=== PATIENT | male | born 1955 | race African-American/Black ===

== ENCOUNTER 2017-02-02 10:36 | Outpatient (CLI) | payer MEDICAID ==
[~2017-02-02] VITALS: Ht 172.7 cm; Wt 75.3 kg
[2017-02-02 11:19] VITALS: BP 142/97
[2017-02-02] MEDS ORDERED: NO MEDICATION (11:20)
--- NOTE | 2017-02-02 11:31 | GI Initial Consult Note ---
History of Present Illness General Date patient seen: Feb 02, 2017 Time patient seen: 11:30 Referring physician: HIMA Reason for Consultation: Pancreatic Mass Present Illness HPI 61 year old male referred by Dr. Arce for evaluation of pancreatic mass. Hx of colonoscopy July 2016. He presents today with c/o of abdominal pain with associated vomiting, GERD, and weight loss since 2015. No signs of abuse or neglect. Patient is not fall risk. Home Meds Reported Medications [No Medication] No Conflict Check 02/02/17 Med list reviewed/reconciled: Yes Allergies: Coded Allergies: No Known Allergies (Unverified , 02/02/17) Patient History History Provided By: Patient, Medical Record PMH Narrative GERD Past Surgical History: other - R inguinal hernia Family History Narrative Mother >> DM Social History Narrative ETOH, 3 beers daily tobacco use, 5-6 daily Review of Systems All Other Systems: negative except mentioned in HPI Physical Exam Vital Signs Date Time Temp Pulse Resp B/P (MAP) Pulse Ox O2 Delivery O2 Flow Rate FiO2 02/02/17 11:19 98.4 82 16 142/97 97 Sp02 EP Interpretation: reviewed, normal General Appearance: well appearing, no apparent distress, alert Head: normocephalic EENT: PERRL/EOMI, normal ENT inspection Neck: supple Respiratory: normal breath sounds, no respiratory distress Cardiovascular: normal rate Gastrointestinal: normal inspection, non tender, soft, normal bowel sounds, non -distended Rectal: deferred Genitourinary: deferred Musculoskeletal: normal inspection, back normal Neurologic: normal inspection, alert, oriented x3, responsive Psychiatric: normal inspection, judgement/insight normal, memory normal Skin: normal inspection, normal color, no rash, warm/dry, palpation normal, well hydrated Lymphatic: normal inspection, no adenopathy GI: Plan Problems: (1) Pancreatic mass (2) Encounter for diagnostic endoscopy (3) GERD (gastroesophageal reflux disease) (4) Weight loss (5) Abdominal pain (6) Vomiting Plan EGD/EUS will be scheduled pending prior authorization. - NPO @ ND day prior procedure explained to patient. - labs to be ordered day of procedure; CA19-[address] Ruvalcaba. Thank you for this patient referral. Nani Stark N.P. Feb 02, 2017 11:31
== END 2017-02-02 11:11 | disposition home or self-care (01) ==
LOC: PAN 10:36
DX: R19.00 Intra-abdominal and pelvic swelling, mass and lump, unspecified site (principal); R11.10 Vomiting, unspecified; K21.9 Gastro-esophageal reflux disease without esophagitis; R63.4 Abnormal weight loss; Z83.3 Family history of diabetes mellitus
CPT/HCPCS: 99201

== ENCOUNTER 2017-03-05 08:06 | Day surgery (SDC) | payer MEDICAID, OTHER ==
[2017-03-05] VITALS (7 sets, daily range): BP systolic 116–157; BP diastolic 70–90
[~2017-03-05] VITALS: Ht 172.7 cm; Wt 77.1 kg
[~2017-03-05 08:06] MED LIST: NO MEDICATION
[2017-03-05] MEDS ORDERED: Propofol 200mg/20ml IV ONE (08:07)
[2017-03-05] MEDS ORDERED: Midazolam 2mg/2ml Inj ONE (08:07)
[2017-03-05] MEDS ORDERED: LR 1000ml ONE (08:07)
[2017-03-05] MEDS ORDERED: fentaNYL 100 mcg/2 mL IV ONE (08:07)
[2017-03-05 08:47] LABS: BASOPHILS % (AUTO) 1.6 % (0.0-2.0); EOSINOPHILS % (AUTO) 1.5 % (0.0-3.0); HEMOGLOBIN 13.5 G/DL (14.2-18.0); LYMPHOCYTES % (AUTO) 22.7 % (20.0-45.0); MEAN CORPUSCULAR VOLUME 95 FL (80-99); MONOCYTES % (AUTO) 9.3 % (1.0-10.0); NEUTROPHILS % (AUTO) 64.9 % (45.0-75.0); PLATELET COUNT 135 K/UL (150-450); RED BLOOD COUNT 4.41 M/UL (4.70-6.10); WHITE BLOOD COUNT 5.3 K/UL (4.8-10.8)
[2017-03-05 08:56] LABS: INR 1.1 (0.9-1.1)
[2017-03-05 08:58] LABS: ANION GAP 10 mmol/L (5-15); BLOOD UREA NITROGEN 7 mg/dL (7-18); CALCIUM 7.6 MG/DL (8.5-10.1); CARBON DIOXIDE 24 MMOL/L (21-32); CHLORIDE 106 MMOL/L (98-107); CREATININE 0.8 MG/DL (0.55-1.30); POTASSIUM 3.3 MMOL/L (3.5-5.1); SODIUM 140 MMOL/L (136-145)
[2017-03-05 09:01] LABS: ALANINE AMINOTRANSFERASE 55 U/L (12-78); ALBUMIN 3.5 G/DL (3.4-5.0); ALBUMIN/GLOBULIN RATIO 0.8 (1.0-2.7); ALKALINE PHOSPHATASE 111 U/L (46-116); AMYLASE 117 U/L (25-115); ASPARTATE AMINO TRANSFERASE 67 U/L (15-37); BILIRUBIN,TOTAL 0.3 MG/DL (0.2-1.0)
--- NOTE | 2017-03-05 09:36 | Pre-Procedure Note/Attestation ---
Pre-Procedure Note/Attestation Complete Prior to Procedure Planned Procedure: not applicable Procedure Narrative: EUS Indications for Procedure Pre-Operative Diagnosis: pancreatic mass Attestation I attest that I discussed the nature of the procedure; its benefits; risks and complications; and alternatives (and the risks and benefits of such alternatives ), prior to the procedure, with the patient (or the patient's legal sales representative printing). I attest that, if there was a reasonable possibility of needing a blood transfusion, the patient (or the patient's legal sales representative printing) was given the [facility] standardized written summary, pursuant to the Oliver Caridad Blood Safety Act ([place] Health and Safety Code # 1645, as amended). I attest that I re-evaluated the patient just prior to the surgery and that there has been no change in the patient's H&P, except as documented below: WILFRED MUJICA Mar 05, 2017 09:36
--- NOTE | 2017-03-05 09:37 | Short Stay Surgery H&P ---
History of Present Illness History of Present Illness Chief Complaint see recent consult note HPI Bird Whitfield is a 61 year old male who was admitted on for Pancreatic Mass Patient History Allergies: Coded Allergies: No Known Allergies (Unverified , 02/02/17) PAST MEDICAL HISTORY: Past Surgeries: Social History: Medication History Miscellaneous Medications [No Medication], (Reported) Physical Exam Vital Signs Last Vital Signs Date Time Temp Pulse Resp B/P (MAP) Pulse Ox O2 Delivery O2 Flow Rate FiO2 03/05/17 08:41 97.8 63 18 152/90 97 Room Air Labs Laboratory Tests Test 03/05/17 08:35 White Blood Count 5.3 K/UL (4.8-10.8) Red Blood Count 4.41 M/UL (4.70-6.10) L Hemoglobin 13.5 G/DL (14.2-18.0) L Hematocrit 42.0 % (42.0-52.0) Mean Corpuscular Volume 95 FL (80-99) Mean Corpuscular Hemoglobin 30.7 PG (27.0-31.0) Mean Corpuscular Hemoglobin Concent 32.2 G/DL (32.0-36.0) Red Cell Distribution Width 13.0 % (11.6-14.8) Platelet Count 135 K/UL (150-450) L Mean Platelet Volume 7.4 FL (6.5-10.1) Neutrophils (%) (Auto) 64.9 % (45.0-75.0) Lymphocytes (%) (Auto) 22.7 % (20.0-45.0) Monocytes (%) (Auto) 9.3 % (1.0-10.0) Eosinophils (%) (Auto) 1.5 % (0.0-3.0) Basophils (%) (Auto) 1.6 % (0.0-2.0) Prothrombin Time 11.2 SEC (9.30-11.50) Prothromb Time International Ratio 1.1 (0.9-1.1) Activated Partial Thromboplast Time 26 SEC (23-33) Sodium Level 140 MMOL/L (136-145) Potassium Level 3.3 MMOL/L (3.5-5.1) L Chloride Level 106 MMOL/L (98-107) Carbon Dioxide Level 24 MMOL/L (21-32) Anion Gap 10 mmol/L (5-15) Blood Urea Nitrogen 7 mg/dL (7-18) Creatinine 0.8 MG/DL (0.55-1.30) Estimat Glomerular Filtration Rate > 60 mL/min (>60) Glucose Level 87 MG/DL (74-106) Calcium Level 7.6 MG/DL (8.5-10.1) L Total Bilirubin 0.3 MG/DL (0.2-1.0) Aspartate Amino Transf (AST/SGOT) 67 U/L (15-37) H Alanine Aminotransferase (ALT/SGPT) 55 U/L (12-78) Alkaline Phosphatase 111 U/L (46-116) Total Protein 8.0 G/DL (6.4-8.2) Albumin 3.5 G/DL (3.4-5.0) Globulin 4.5 g/dL Albumin/Globulin Ratio 0.8 (1.0-2.7) L Amylase Level 117 U/L (25-115) H Lipase 349 U/L (73-393) Plan Attestation Are the patient's medical conditions optimized for surgery? WILFRED MUJICA Mar 05, 2017 09:37
[2017-03-05] MEDS ORDERED: LR 1000ml 1,000 ML IVLG SCH (09:46)
--- NOTE | 2017-03-05 09:50 | Anethesia Preoperative Eval ---
Anesthesia Pre-op PMH/ROS General Date of Evaluation: Mar 05, 2017 Time of Evaluation: 09:47 Anesthesiologist: JONATHAN ASA Score: ASA 2 Mallampati Score Class I : Soft palate, uvula, fauces, pillars visible Class II: Soft palate, uvula, fauces visible Class III: Soft palate, base of uvula visible Class IV: Only hard plate visible Mallampati Classification: Class II Surgeon: Jordon Diagnosis: Pancreatic Mass Surgical Procedure: EBUS Anesthesia History: none Allergies: Coded Allergies: No Known Allergies (Unverified , 02/02/17) Medications: see eMAR Anesthesia Pre-op Phys. Exam Physician Exam Last Vital Signs Date Time Temp Pulse Resp B/P (MAP) Pulse Ox O2 Delivery O2 Flow Rate FiO2 03/05/17 08:41 97.8 63 18 152/90 97 Room Air Constitutional: NAD Neurologic: CN 2-12 intact Cardiovascular: RRR Respiratory: CTA Gastrointestinal: S/NT/ND Airway Exam Mallampati Score: Class II MO: full ROM: full Teeth: intact Anesthesia Pre-op A/P Labs Hematology Test 03/05/17 08:35 White Blood Count 5.3 K/UL (4.8-10.8) Red Blood Count 4.41 M/UL (4.70-6.10) L Hemoglobin 13.5 G/DL (14.2-18.0) L Hematocrit 42.0 % (42.0-52.0) Mean Corpuscular Volume 95 FL (80-99) Mean Corpuscular Hemoglobin 30.7 PG (27.0-31.0) Mean Corpuscular Hemoglobin Concent 32.2 G/DL (32.0-36.0) Red Cell Distribution Width 13.0 % (11.6-14.8) Platelet Count 135 K/UL (150-450) L Mean Platelet Volume 7.4 FL (6.5-10.1) Neutrophils (%) (Auto) 64.9 % (45.0-75.0) Lymphocytes (%) (Auto) 22.7 % (20.0-45.0) Monocytes (%) (Auto) 9.3 % (1.0-10.0) Eosinophils (%) (Auto) 1.5 % (0.0-3.0) Basophils (%) (Auto) 1.6 % (0.0-2.0) Coagulation Test 03/05/17 08:35 Prothrombin Time 11.2 SEC (9.30-11.50) Prothromb Time International Ratio 1.1 (0.9-1.1) Activated Partial Thromboplast Time 26 SEC (23-33) Chemistry Test 03/05/17 08:35 Sodium Level 140 MMOL/L (136-145) Potassium Level 3.3 MMOL/L (3.5-5.1) L Chloride Level 106 MMOL/L (98-107) Carbon Dioxide Level 24 MMOL/L (21-32) Anion Gap 10 mmol/L (5-15) Blood Urea Nitrogen 7 mg/dL (7-18) Creatinine 0.8 MG/DL (0.55-1.30) Estimat Glomerular Filtration Rate > 60 mL/min (>60) Glucose Level 87 MG/DL (74-106) Calcium Level 7.6 MG/DL (8.5-10.1) L Total Bilirubin 0.3 MG/DL (0.2-1.0) Aspartate Amino Transf (AST/SGOT) 67 U/L (15-37) H Alanine Aminotransferase (ALT/SGPT) 55 U/L (12-78) Alkaline Phosphatase 111 U/L (46-116) Total Protein 8.0 G/DL (6.4-8.2) Albumin 3.5 G/DL (3.4-5.0) Globulin 4.5 g/dL Albumin/Globulin Ratio 0.8 (1.0-2.7) L Amylase Level 117 U/L (25-115) H Lipase 349 U/L (73-393) Risk Assessment & Plan Plan: GA Status Change Before Surgery: No Pre-Antibiotics Given Within 1 Hr of Incision: Duy Alvarez M.D. Mar 05, 2017 09:50
--- NOTE | 2017-03-05 09:52 | Immediate Post-Op Evaluation ---
Immediate Post-Op Evalulation Immediate Post-Op Evalulation Procedure: EBUS Date of Evaluation: Mar 05, 2017 Time of Evaluation: 11:00 IV Fluids: 400 Blood Products: 0 Estimated Blood Loss: 0 Urinary Output: 0 Blood Pressure Systolic: 129 Blood Pressure Diastolic: 80 Pulse Rate: 98 Respiratory Rate: 16 O2 Sat by Pulse Oximetry: 99 Temperature (Fahrenheit): 98 Pain Score (1-10): 0 Nausea: No Vomiting: No Patient Status: awake, reacts, patent Hydration Status: adequate Given Within 1 Hr of Incision: Duy Alvarez M.D. Mar 05, 2017 09:51
[2017-03-05] MEDS ORDERED: Metoclopramide 10mg/2ml Inj IVP PRN (10:00)
[2017-03-05] MEDS ORDERED: Ketorolac 30mg Inj IV PRN (10:00)
[2017-03-05] MEDS ORDERED: Midazolam 2mg/2ml Inj IVP PRN (10:00)
[2017-03-05] MEDS ORDERED: fentaNYL 100 mcg/2 mL IV PRN (10:00)
[2017-03-05] MEDS ORDERED: Morphine Sulfate 2mg/ml Inj IVP PRN (10:00)
[2017-03-05] MEDS ORDERED: Heplock Flush 100 units/ml 3 ml syr ONE (10:08)
[2017-03-05] MEDS ORDERED: NS 500ML IV ONE ×2 (10:30→11:00)
--- NOTE | 2017-03-05 11:26 | Endoscopy Procedure Note ---
Endoscopy Procedure Note Indication for Procedure: pancreatitis Procedures Performed: other - EUS/FNA Operative Findings/Diagnosis: same Specimen: yes Pt Tolerated Procedure Well: Yes Estimated Blood Loss: none Anesthesiologist: see chart Anesthesia: MAC Implant(s) used?: No 50 yrs or older w/o bx or poly: Not Applicable 10yrs. F/U not recommended: Not Applicable WILFRED MUJICA Mar 05, 2017 11:26
--- NOTE | 2017-03-05 15:59 | Procedure Note ---
DATE OF PROCEDURE: 03/05/2017 SURGEON: Savage Ruvalcaba M.D. PROCEDURE: Endoscopic ultrasound with core needle biopsy. ANESTHESIA: Per anesthesiologist, please see anesthesia sheet. INSTRUMENT: Olympus adult flexible EUS radial and linear scope. INDICATION: Pancreatic mass. REASON FOR PROCEDURE: The procedure, risks, benefits, and possible consequences, including hemorrhage, aspiration, perforation and infection, and alternative treatments, were explained to the patient/legal guardian by Dr. Savage Ruvalcaba and the patient/legal guardian understood and accepted these risks. PROCEDURE: After informed consent was obtained, the patient was adequately sedated. EUS radial scope was advanced mouth into the second portion of the duodenum and pancreatic parenchyma was carefully examined through the gastroduodenal mucosa. The patient had evidence of mild duodenitis, most probably from this pancreatic processes, which is going on. The whole pancreas was inflamed. The patient had evidence of lobulation and hyperechoic foci throughout the pancreas suggestive of chronic pancreatitis. Pancreatic duct was not dilated, but there was a focal 3 centimeter lesion in the head of the pancreas, which was more inflamed compared to rest of it. It is very hard to say if it is the tumor versus lobulated inflammation. Again this is a very challenging case because the patient has evidence of chronic pancreatitis and it is very difficult to separate tumor from lobulated pancreatic parenchymal inflammation. Then, we used FNA scope. We did two passes of this area in the head of the pancreas. Also, there was a 1 centimeter lymph node next to the pancreas, which also be . SUMMARY FINDINGS: 1. Evidence of chronic pancreatitis with lobulation of pancreatic parenchyma with a focal lesion of 3 centimeter, which is suspicious for either of malignancy versus lobulated inflamed pancreas. 2. Evidence of duodenitis. 3. A 1 centimeter peripancreatic lymph node. RECOMMENDATIONS: Follow biopsy results and treat accordingly. Savage Ruvalcaba M.D. DR: JULIAN JOB#: [id number] CC:
--- NOTE | 2017-04-27 14:52 | Cardiology Report ---
APPROVED REPORT EKG Measurement Heart [id number] NC 180P55 [id number] Normal sinus rhythm Normal ECG
== END 2017-03-05 12:40 | disposition home or self-care (01) ==
LOC: GAS 08:06
DX: K86.1 Other chronic pancreatitis (principal); K29.80 Duodenitis without bleeding; K86.9 Disease of pancreas, unspecified
CPT/HCPCS: 36415; 43242; 80053; 82150; 83690; 85025; 85610; 85730; 93005; J1642; J2250; J2704; J3010; J7040; J7120; 94003; 94150

== ENCOUNTER 2017-03-25 13:39 | Outpatient (CLI) | payer OTHER ==
[2017-03-25 14:17] VITALS: BP 133/83
--- NOTE | 2017-03-25 15:42 | GI Progress Note ---
Assessment/Plan Problems: (1) Pancreatic mass ICD Codes: K86.9 - Disease of pancreas, unspecified SNOMED: 010179765 (2) Vomiting ICD Codes: R11.10 - Vomiting, unspecified SNOMED: 780828652 (3) Abdominal pain ICD Codes: R10.9 - Unspecified abdominal pain SNOMED: 51047883 (4) GERD (gastroesophageal reflux disease) ICD Codes: K21.9 - Gastro-esophageal reflux disease without esophagitis SNOMED: 486028450 (5) Weight loss ICD Codes: R63.4 - Abnormal weight loss SNOMED: 77291907, 725111250 Status: stable Status Narrative Seen with Dr. Ruvalcaba. Assessment/Plan SUMMARY FINDINGS: 1. Evidence of chronic pancreatitis with lobulation of pancreatic parenchyma with a focal lesion of 3 centimeter, which is suspicious for either of malignancy versus lobulated inflamed pancreas. 2. Evidence of duodenitis. 3. A 1 centimeter peripancreatic lymph node. Rx Creon 1 tab PO TID Omeprazole 40mg avoid ETOH RTC x 1 month Subjective Subjective Abdominal pain LUQ, occasional Objective Last 24 Hour Vital Signs Date Time Temp Pulse Resp B/P (MAP) Pulse Ox O2 Delivery O2 Flow Rate FiO2 03/25/17 14:17 98.5 95 18 133/83 97 Weight (Pounds): 161 General Appearance: WD/WN, no apparent distress, alert Cardiovascular: normal rate Respiratory/Chest: normal breath sounds, no respiratory distress Abdominal Exam: normal bowel sounds, non tender, soft Extremities: normal range of motion, non-tender Nani Stark N.P. Mar 25, 2017 15:42
== END 2017-03-25 14:12 | disposition home or self-care (01) ==
LOC: PAN 13:39
DX: K21.9 Gastro-esophageal reflux disease without esophagitis (principal); R63.4 Abnormal weight loss; R11.10 Vomiting, unspecified; K86.9 Disease of pancreas, unspecified; R10.9 Unspecified abdominal pain
CPT/HCPCS: 99212

== ENCOUNTER 2017-04-29 13:05 | Outpatient (CLI) | payer OTHER ==
--- NOTE | 2017-04-29 15:54 | GI Progress Note ---
Assessment/Plan Problems: (1) Pancreatic mass ICD Codes: K86.9 - Disease of pancreas, unspecified SNOMED: 574708331 (2) GERD (gastroesophageal reflux disease) ICD Codes: K21.9 - Gastro-esophageal reflux disease without esophagitis SNOMED: 970943730 (3) Encounter for diagnostic endoscopy ICD Codes: Z01.818 - Encounter for other preprocedural examination SNOMED: 760214294, 940295346 (4) Abdominal pain ICD Codes: R10.9 - Unspecified abdominal pain SNOMED: 81433879 Status: doing well, stable Status Narrative Seen with Dr. Ruvalcaba. Assessment/Plan SUMMARY FINDINGS reviewed with patient. 1. Evidence of chronic pancreatitis with lobulation of pancreatic parenchyma with a focal lesion of 3 centimeter, which is suspicious for either of malignancy versus lobulated inflamed pancreas. 2. Evidence of duodenitis. 3. A 1 centimeter peripancreatic lymph node. weight gain 10lbs cont Creon 1 tab PO TID Omeprazole 40mg cont avoid ETOH RTC x 1 month request surgical consult for R. Inguinal Hernia Subjective Gastrointestinal/Abdominal: Reports: no symptoms Subjective c/o of right inguinal hernia Objective T 98.4 BP 138/93 P 92 98 RA WT 171.2 (weight gain 10 lbs) Denies any unintentional weight loss or changes in dietary habits. General Appearance: WD/WN, no apparent distress, alert Cardiovascular: normal rate Respiratory/Chest: normal breath sounds, no respiratory distress Abdominal Exam: normal bowel sounds, non tender, soft Extremities: normal range of motion, non-tender Nani Stark N.P. Apr 29, 2017 15:54
== END 2017-04-29 13:37 | disposition home or self-care (01) ==
LOC: PAN 13:05
DX: Z01.818 Encounter for other preprocedural examination (principal); K86.9 Disease of pancreas, unspecified; K21.9 Gastro-esophageal reflux disease without esophagitis; R10.9 Unspecified abdominal pain; K29.80 Duodenitis without bleeding
CPT/HCPCS: 99211